=== PATIENT | male | born 1945 | race Caucasian/White ===

== ENCOUNTER 2019-05-02 10:44 | Emergency (ER) | payer MEDICARE ==
[2019-05-02 10:54] VITALS: BP 139/66
--- NOTE | 2019-05-02 12:19 | ED Physician Documentation ---
PD HPI HEENT - Stated complaint Stated Complaint: SORE THROAT - Chief complaint Chief Complaint: Heent - History obtained from History obtained from: Patient - History of Present Illness Timing - onset: Other (4 days of sore throat with some nasal congestion but that is minimal. No fevers. He tried Chloraseptic without relief.) Review of Systems Constitutional: denies: Fever, Chills Ears: denies: Ear pain Nose: reports: Rhinorrhea / runny nose, Congestion. denies: Sinus pressure / pain Throat: reports: Sore throat Respiratory: denies: Cough PD PAST MEDICAL HISTORY - Past Medical History Past Medical History: Yes Cardiovascular: Hypertension, High cholesterol GI: GERD - Past Surgical History Past Surgical History: Yes - Present Medications Home Medications: Ambulatory Orders Medication Instructions Recorded Confirmed Aspirin [Aspir 81] 81 mg PO DAILY 03/22/15 03/22/15 Losartan/Hydrochlorothiazide 1 each PO DAILY 03/22/15 03/22/15 [Losartan-Hctz 100-12.5 mg Tab] Omeprazole 20 mg PO DAILY 03/22/15 03/22/15 Polymyxin B Sulf/Trimethoprim 1 - 2 drops OP Q4HR #10 ml 03/22/15 [Polytrim Eye Drops] Pravastatin Sodium [Pravachol] 80 mg PO DAILY 03/22/15 03/22/15 Guaifenesin/Pseudoephedrne HCl 1 each PO BID PRN #20 tab.er.12h 05/02/19 [Mucinex D ER 600-60 mg Tablet] Ibuprofen [Motrin] 800 mg PO Q8H PRN #30 tablet 05/02/19 Mometasone Furoate [Nasonex] 1 spray NS BID #1 spray.pump 05/02/19 - Allergies Allergies/Adverse Reactions: Allergies Allergy/AdvReac Type Severity Reaction Status Date / Time No Known Drug Allergies Allergy Verified 05/02/19 10:53 - Social History Does the pt smoke?: No Smoking Status: Never smoker Does the pt drink ETOH?: Yes Does the pt have substance abuse?: No - Immunizations Immunizations are current?: Yes PD ED PE NORMAL - Vitals Vital signs reviewed: Yes - General General: Alert and oriented X 3, No acute distress - HEENT HEENT: Other (Voice is normal, visualized portions of the oropharynx are normal. He does have some retraction of the left tympanic membrane. No cervical adenopathy.) - Neuro Neuro: Alert and oriented X 3, Normal speech Results - Vitals Vitals: Vital Signs - 24 hr 05/02/19 10:49 Temperature 36.6 C Heart Rate 87 Respiratory 14 Rate Blood Pressure 139/66 H O2 Saturation 99 Oxygen O2 Source Room air - Labs Labs: Laboratory Tests 05/02/19 10:55 Group A Strep Rapid Negative Departure - Departure Disposition: Home, Self Care Clinical Impression: Viral pharyngitis Condition: Good Record reviewed to determine appropriate education?: Yes Instructions: ED Pharyngitis Viral Prescriptions: Guaifenesin/Pseudoephedrne HCl [Mucinex D ER 600-60 mg Tablet] 1 each PO BID PRN #20 tab.er.12h PRN Reason: congestion Ibuprofen [Motrin] 800 mg PO Q8H PRN #30 tablet PRN Reason: PAIN &/OR FEVER Mometasone Furoate [Nasonex] 1 spray NS BID #1 spray.pump Comments: We are performing a throat culture and will call you in approximately 2 days of a bacterial pathogen is isolated. Follow-up with your doctor in a week if not better.
== END 2019-05-02 12:23 | disposition home or self-care (01) ==
LOC: ED 10:44
DX: J02.8 Acute pharyngitis due to other specified organisms (principal); B97.89 Other viral agents as the cause of diseases classified elsewhere; I10 Essential (primary) hypertension; Z79.82 Long term (current) use of aspirin
CPT/HCPCS: 87070; 87430; 99283